=== PATIENT | female | born 1965 | race Caucasian/White ===

== ENCOUNTER 2017-11-02 18:35 | Emergency (ER) | payer BC, OTHER ==
[~2017-11-02] VITALS: Ht 162.6 cm; Wt 59.0 kg
[~2017-11-02 18:35] MED LIST: ALBU1AER INH; CYMB30CA PO; PROM25SU8 PO
[2017-11-02 18:40] VITALS: BP 185/82; PULSE 105; RESP 18; O2SAT 100
[2017-11-02] MEDS ORDERED: LISI10TA3 PO (19:06)
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
[2017-11-02] MEDS ORDERED: IBUP1TAB7 PO (19:44)
[2017-11-02] MEDS ORDERED: ROBA500T PO (19:44)
[2017-11-02 19:58] VITALS: BP 167/76
[2017-11-02] MEDS ORDERED: IBUPROFEN 800 MG TAB PO ONE (20:00)
== END 2017-11-02 19:58 | disposition home or self-care (01) ==
LOC: PHEFT 18:35
DX: S29.012A Strain of muscle and tendon of back wall of thorax, initial encounter (principal); S29.011A Strain of muscle and tendon of front wall of thorax, initial encounter; V49.49XA Driver injured in collision with other motor vehicles in traffic accident, initial encounter; Y92.410 Unspecified street and highway as the place of occurrence of the external cause; R00.0 Tachycardia, unspecified
CPT/HCPCS: 71045; 72125; 99284